=== PATIENT | female | born 1940 | race Two or more races ===

== ENCOUNTER 2018-02-09 07:35 | Outpatient (CLI) | payer OTHER | END 2018-02-09 14:08 | disposition home or self-care (01) | LOC: SONOGRAMA 07:35 | DX: E04.1 Nontoxic single thyroid nodule (principal) ==

== ENCOUNTER 2020-12-11 08:04 | Outpatient (CLI) | payer OTHER | END 2020-12-11 08:06 | disposition home or self-care (01) | LOC: SONOGRAMA 08:04 | PROVIDERS: ATTEND Pathology Anatomic Pathology & Clinical Pathology | DX: D34 Benign neoplasm of thyroid gland (principal); E04.2 Nontoxic multinodular goiter; E04.8 Other specified nontoxic goiter ==

== ENCOUNTER 2024-12-10 07:59 | Outpatient (CLI) | payer OTHER | END 2024-12-10 08:01 | disposition home or self-care (01) | LOC: SONOGRAMA 07:59 | PROVIDERS: ATTEND Pathology Anatomic Pathology & Clinical Pathology | DX: D34 Benign neoplasm of thyroid gland (principal); E07.89 Other specified disorders of thyroid; E04.2 Nontoxic multinodular goiter ==